=== PATIENT | male | born 1970 | race African-American/Black ===

== ENCOUNTER 2022-08-20 22:09 | Emergency (ER) | payer OTHER, SELFPAY ==
[2022-08-20 22:12] VITALS: BP 133/80; PULSE 52; RESP 16; TEMP 37; O2SAT 98; BMI 20.5
--- NOTE | 2022-08-20 22:30 | ED_ITS ---
HPI - Dental/Oral General Chief complaint: Dental/Oral Stated complaint: SWOLLEN FACE AND TOOTH ACHE Time Seen by Provider: 08/20/22 22:16 Source: patient and family Mode of arrival: walk-in Limitations: no limitations History of Present Illness HPI Narrative: presents complaining of dental pain for past 4 days. Finally came in due to increased pain and swelling. No problem swallowing. No fever or chills or nausea Onset (ago): day(s) Duration: worsening Severity: moderate Related Data Home Medications Medication Instructions Recorded Confirmed No Known Home Medications 08/20/22 08/20/22 Allergies Allergy/AdvReac Type Severity Reaction Status Date / Time No Known Drug Allergies Allergy Verified 08/20/22 22:16 Review of Systems ROS Status of ROS 10 or more systems reviewed and unremarkable except as noted in history and below [facility] Social History Smoking status: Current every day smoker Exam Constitutional Vital Signs, click to edit/add: Last Vital Signs Temp 98.6 F 08/20/22 22:12 Pulse 52 L 08/20/22 22:12 Resp 16 08/20/22 22:12 BP 133/80 H 08/20/22 22:12 Pulse Ox 98 08/20/22 22:12 O2 Del Method Room Air 08/20/22 22:12 Common normals: no apparent distress, oriented x3, healthy appearing and alert HENWA Common normals: normocephalic and head/scalp atraumatic Other: right lower molar anterior dental caries with surrounding swelling Eye Common normals: PERRL, EOMs intact bilaterally and conjunctivae normal Respiratory Common normals: normal respiratory effort, no retractions, no use of accessory muscles and clear to auscultation bilaterally Cardio Common normals: regular rate, regular rhythm, S1 normal heart sound and S2 normal heart sound GI Common normals: non-tender Extremity Common normals: normal to inspection and full ROM Neuro Common normals: oriented x3, CN's II-XII intact bilaterally, moves all extremities, no focal motor deficits and no sensory deficits noted Psych Appearance: grossly normal Course Vital Signs Vital signs: Vital Signs Temperature 98.6 F 08/20/22 22:12 Pulse Rate 52 L 08/20/22 22:12 Respiratory Rate 16 08/20/22 22:12 Blood Pressure 133/80 H 08/20/22 22:12 Pulse Oximetry 98 08/20/22 22:12 Oxygen Delivery Method Room Air 08/20/22 22:12 Temperature 98.6 F 08/20/22 22:12 Pulse Rate 52 L 08/20/22 22:12 Respiratory Rate 16 08/20/22 22:12 Blood Pressure 133/80 H 08/20/22 22:12 Pulse Oximetry 98 08/20/22 22:12 Oxygen Delivery Method Room Air 08/20/22 22:12 MDM - Dental/Oral MDM Narrative Medical decision making narrative: patient presents with increasing dental pain for 4 days and now has swelling of his right chin area. oral pharynx is clear. Patient has dental caries. Patient informed of diagnsis of dental abscess an is prescribed augmentin and norco Discharge Plan Discharge Chief Complaint: Dental/Oral Clinical Impression: Dental abscess Patient Disposition: Home, Self-Care Prescriptions / Home Meds: No Action No Known Home Medications Instructions: Dental Abscess (ED) Additional Instructions: follow up with the family dentist later this week Stand Alone Forms: Portal Instructions
[2022-08-20] MEDS: HYDROCODONE/ACETAMINOPHEN 5-325 MG TABLET 2 TAB PO (22:59)
== END 2022-08-20 23:13 | disposition home or self-care (01) ==
PROVIDERS: Emergency Provider Internal Medicine
DX: K04.7 Periapical abscess without sinus (principal); F17.210 Nicotine dependence, cigarettes, uncomplicated
CPT/HCPCS: 99283

== ENCOUNTER 2024-06-07 17:27 | Emergency (ER) | payer OTHER, SELFPAY ==
[2024-06-07 17:37] VITALS: BP 107/69; PULSE 55; TEMP 37.1; O2SAT 96; BMI 19.9
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
== END 2024-06-07 18:51 | disposition home or self-care (01) ==
PROVIDERS: Emergency Provider Emergency Medicine
DX: S61.431A Puncture wound without foreign body of right hand, initial encounter (principal); W45.8XXA Other foreign body or object entering through skin, initial encounter; G89.29 Other chronic pain; F17.200 Nicotine dependence, unspecified, uncomplicated
CPT/HCPCS: 73120; 99283